=== PATIENT | male | born 1985 | race Native Hawaiian/Other Pacific Islander ===

== ENCOUNTER 2017-12-05 18:08 | Emergency (ER) | payer OTHER ==
[2017-12-05 18:32] VITALS: TEMP 98.6
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
[2017-12-05] MEDS ORDERED: LET GEL TOPICAL 1 EA SYR TP ONE ×2 (19:20→19:21)
[2017-12-05 19:24] VITALS: RESP 14
[2017-12-05 20:28] VITALS: BP 91/60; PULSE 75; O2SAT 95
== END 2017-12-05 20:27 | disposition home or self-care (01) ==
PROC: 0HQLXZZ Repair Left Lower Leg Skin, External Approach (ICD-10-PCS; principal; 2017-12-05)
DX: S52.124A Nondisplaced fracture of head of right radius, initial encounter for closed fracture (principal); S81.012A Laceration without foreign body, left knee, initial encounter; S50.311A Abrasion of right elbow, initial encounter; V19.9XXA Pedal cyclist (driver) (passenger) injured in unspecified traffic accident, initial encounter; Y92.410 Unspecified street and highway as the place of occurrence of the external cause; Y99.8 Other external cause status; Y93.89 Activity, other specified
CPT/HCPCS: A4565